=== PATIENT | female | born 2000 | race Caucasian/White ===

== ENCOUNTER → 2025-03-16 | Outpatient (CLI) | payer BC, SELFPAY ==
[2025-03-16 11:55] LABS: Absolute Lymphocyte Count 3.48 X10^3/uL (0.83-4.51); Absolute Neutrophil Count 5.2 X10^3/uL (2.0-7.7); Basophil# 0.04 X10^3/uL; Basophil% 0.4 % (0-1); Eosinophil# 0.55 X10^3/uL; Eosinophils% 5.6 % (0-5); Hematocrit 37.4 % (37-47); Hemoglobin 12.4 g/dL (12.0-15.0); Lymphocyte # 3.48 X10^3/ul (0.83-4.51); Lymphocyte % 35.6 % (19-41); Mean Corp Hgb Conc 33.2 g/dL (32-36); Mean Corpuscular Hgb 29.7 pg (27.0-32.0); Mean Corpuscular Volume 89.5 fL (81-99); Mean Platelet Vol. 9.2 fl (6.2-12.0); Monocyte# 0.45 X10^3/uL; Monocyte% 4.6 % (0-10); NRBC Flagged by Analyzer 0 % (0-5); Neutrophil # 5.23 X10^3/uL (2.7-7.7); Neutrophil % 53.6 % (47-70); Platelet Count 449 K/mm3 (150-450); RBC Distribution Width CV 13.4 % (11.6-14.6); RBC Distribution Width SD 43.7 fl (35.1-43.9); Red Blood Count 4.18 M/mm3 (4.2-5.4); White Blood Count 9.8 K/mm3 (4.4-11.0)
[2025-03-16 15:02] LABS: Hemoglobin A1c 5.7 % (<=5.6)
[2025-03-16 15:17] LABS: ALB/GLOB Ratio 1.1 RATIO (0.9-2.4); AST(SGOT) 13 U/L (<=31); Alanine Aminotransfer ALT/SGPT 10 U/L (<=34); Albumin, Serum 3.7 g/dL (3.5-5.0); Alkaline Phosphatase 117 U/L (35-104); Anion Gap 10 (5-15); BUN 11 mg/dL (4-19); BUN/Creat Ratio 18.9 RATIO (10-20); Calcium,Total 8.8 mg/dL (7.6-11.0); Carbon Dioxide 21.6 mmol/L (21.0-32.0); Chloride 106 mmol/L (98-108); Cholesterol 163 mg/dL (<=200); Creatinine, Serum 0.58 mg/dL (0.70-1.20); EST Glomerular Filtration Rate 129 (>60); Ferritin 40 ng/mL (22-378); Globulin 3.4 g/dL (2.2-4.2); Glucose 105 mg/dL (70-99); High Density Lipoprotein 52 mg/dL; Low Density Lipoprotein Calc. 89 mg/dL; Potassium 3.8 mmol/L (3.3-5.1); Protein, Total 7.1 g/dL (5.9-8.4); Sodium Level 138 mmol/L (133-145); Total Bilirubin 0.25 mg/dL (0.00-1.30); Triglycerides 110 mg/dL; Very Low Density Lipoprotein 22 mg/dL (5-40); Vitamin B12 432 pg/mL (180-914); cholesterol:hdl ratio screen 3.13
[2025-03-16 15:45] LABS: Iron 66 ug/dL (50-170); Iron Binding Capacity,Total 336 ug/dL (250-450); Iron Binding Capacity,Unsat 270 ug/dL (228-428)
[2025-03-18 05:07] LABS: Somatomedin C 85 ng/mL (101-347)
== END | disposition home or self-care (01) ==
LOC: LAB 11:17
PROVIDERS: PCP Nurse Practitioner Family; Referring Provider Nurse Practitioner Family; Visit Provider Nurse Practitioner Family
DX: K80.20 Calculus of gallbladder without cholecystitis without obstruction (principal); Z13.1 Encounter for screening for diabetes mellitus; Z13.220 Encounter for screening for lipoid disorders; R53.83 Other fatigue; E66.9 Obesity, unspecified
CPT/HCPCS: 36415; 80053; 80061; 82306; 82607; 82728; 83036; 83540; 83550; 84305; 84439; 84443; 85025

== ENCOUNTER 2025-04-30 11:07 | Day surgery (SDC) | payer BC, SELFPAY ==
[2025-04-30] VITALS (9 sets, daily range): BP systolic 143–158; BP diastolic 61–92; PULSE 77–110; RESP 14–18; TEMP 2.2–36.6; O2SAT 92–100; BMI 49.6
--- NOTE | 2025-04-30 11:44 | EKG12_ITS ---
Test Reason : PRE OP Blood Pressure : */* mmHG Vent. Rate : 68 BPM Atrial Rate : 68 BPM P-R Int : 136 ms QRS Dur : 78 ms QT Int : 368 ms P-R-T Axes : 48 28 5 degrees QTcB Int : 391 ms Normal sinus rhythm with sinus arrhythmia Normal ECG No previous ECGs available Confirmed by FROY OTTO, JOSE ([id number]), editor greeting card ANDREA SERRANO ([id number]) on 05/04/2025 6:49:17 AM Referred By: Choco Gonzáles Confirmed By: JOSE MCDUFFIE MD
[2025-04-30 11:45] LABS: Internal QC Validated? YES +Cl - CLEAR BKGD; Pregnancy, Urine Negative Negative
[2025-04-30] MEDS: Lactated Ringers 1,000 ML 15 ML IV (12:00)
--- NOTE | 2025-04-30 12:24 | PRE.ANES_ITS ---
ASA Classification* ASA Classification ASA Classification: 3 Assessment & Plan Anesthesia* Anesthesia Assessment Anesthesia Assessment: Discussed sedation and/or anesthesia options, risks, benefits, and alternatives with patient/parents/legal guardian/POA. Questions invited. The patient/parents/legal guardian/POA seems to understand and agrees to proceed with anesthesia plan. Reviewed the physical assessment, medical history, allergy history and patient home medications list prior to surgery/procedure/anesthetic and documented any changes. Performed airway and anesthesia risk assessments. Anesthesia Type Anesthesia Type: General History Source History Obtained from:: Patient and Chart Anesthesia Focused Assessment* Temperature: 97.9 F Pulse Rate: 77 Blood Pressure: 148/92 Respiratory Rate: 18 Pulse Ox: 100 Oxygen Delivery Method: Room Air Airway Assessment Mouth opens: >3 cm Mallampati Score: III Teeth Condition: Intact Neck Range of motion (ROM): Full ROM Labs Anesthesia Preop lab: CBC WBC 9.8 K/mm3 (4.4-11.0) 03/16/25 11:03/16/25 RBC 4.18 M/mm3 (4.2-5.4) L 03/16/25 11:03/16/25 Hgb 12.4 g/dL (12.0-15.0) 03/16/25 11:03/16/25 Hct 37.4 % (37-47) 03/16/25 11:03/16/25 Plt Count 449 K/mm3 (150-450) 03/16/25 11:32 03/16/25 CHEMISTRY Potassium 3.8 mmol/L (3.3-5.1) 03/16/25 11:03/16/25 Sodium 138 mmol/L (133-145) 03/16/25 11:32 03/16/25 BUN 11 mg/dL (4-19) 03/16/25 11:03/16/25 Creatinine 0.58 mg/dL (0.70-1.20) L 03/16/25 11:32 Glucose 105 mg/dL (70-99) H 03/16/25 11:32 03/16/25 TSH 3.610 uIU/mL (0.300-4.200) 03/16/25 11:32 03/04 01/26 COAG Urine Test Negative Negative 04/30/25 11:35 04/30/25 Pre-Assessment Diagnosis/Proposed Procedure Planned Operative Procedure(s): KATE CHOLEY WITH GRAMS Anesthesia History 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 When Was Last Pacemaker Check QUESTION #4 FULL TEXT: You/Your Family Experience fever (hyperthermia) with Anesthesia Last Oral Intake Last Oral intake: Last Oral Intake NPO since 06:00 04/30/25 11:47 Meds taken in AM with sips of No 04/30/25 11:47 water? 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 Female Yes 04/21/25 11:16 HX of Motion Sickness Yes 04/21/25 11:16 HX of N/V After Surgery No 04/21/25 11:16 Non-Smoker Yes 04/21/25 11:16 Duration of Surgery greater No 04/21/25 11:16 than 60 minutes Number of Risk Factors 3 04/21/25 11:16 PONV Score Moderate Risk 04/21/25 11:16 Height & Weight Height & Weight: Anesthesia: Height & Weight Height 5 ft 2 in 04/30/25 11:47 Weight: 123 kg 04/30/25 11:47 Body Mass Index (BMI) 49.6 04/30/25 11:47 Respiratory Assessment Respiratory Assessment - front load trash truck driver: Respiratory Tract Infection Hx - front load trash truck driver Hx Respiratory Tract Infection No 04/21/25 11:16 STOP Sleep Apnea STOP Sleep Apnea - front load trash truck driver: STOP Sleep Apnea - front load trash truck driver Hx Hypertension No 04/21/25 11:16 Hx Sleep Apnea No 04/21/25 11:16 CPAP BIPAP Do you snore loudly (louder No 04/21/25 11:16 than talking or can be heard Do you often feel tired/ No 04/21/25 11:16 fatigued/ sleepy during daytime? Has anyone observed you stop No 04/21/25 11:16 breathing during sleep? STOP Results Negative 04/21/25 11:16 QUESTION #5 FULL TEXT : Do you snore loudly (louder than talking or can be heard through closed doors)? 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 Specify any problems Hx of Preganancy in last 3 No 04/21/25 11:16 Months Nurse Filling Out Transfusion DSCHRIBER 04/21/25 11:16 & Questions: Date: 04/21/25 04/21/25 11:16 Time: 11:16 04/21/25 11:16 Patient unable to answer at this time (ie. confused, unrespo /Reproduction History /Reproductive History - front load trash truck driver: /Reproductive Hx- front load trash truck driver Hx Now No 04/21/25 11:16 Gestational Age (in weeks): EDC: Hx Hx Para Hx Section SAB No 04/21/25 11:16 Active Medications Active Medications: Current Medications Generic Name Dose Route Start Last Admin Trade Name Freq PRN Reason Stop Dose Admin Cefotetan Disodium 2 gm/ 100 mls @ 200 mls/hr 04/30/25 13:00 Sodium Chloride IV 04/30/25 13:29 INTRAOP ONE Lactated Ringer's 1,000 mls @ 15 mls/hr 04/30/25 11:30 04/30/25 12:00 IV 15 mls/hr .Q48H LUIS Administration PFSH Medical History Gastric reflux Non-smoker Gallstones Obesity Home Medications ?Medication ?Instructions ?Recorded ?Last Taken ?Type norgestimate 0.18 mg/0.215mg/0.25 1 tab PO QDAY 04/29/25 History mg-ethinyl estradiol 0.025 mg tablet ([id number]) Allergy/AdvReac Type Severity Reaction Status Date / Time No Known Allergies Allergy Verified 04/30/25 11:46 Family History Other Breast cancer Cancer Heart disease Surgical History History of wisdom tooth extraction Social History Smoking Status: Never smoker alcohol intake: never substance use type: does not use Review of Systems (Anesthesia) ROS Narrative System reviewed and no additional complaints, except as documented.
--- NOTE | 2025-04-30 12:43 | PCM.HP.BLA ---
History and Physical Date of Admission: 04/30/25 Intake Vital Signs 08/24/2411:16 04/14/2509:10 Height 5 ft 2 in 5 ft 2 in Weight: 272 lb 8 oz BMI 49.8 BP 111/72 Blood Pressure Location Rt brachial Position Sitting Respiration 18 Pulse 92 Pulse Source Monitor Temp 97.6 F L Temp Source Temporal Pulse Oximetry (%) 98 Oxygen Delivery Method room air Intake Visit Reasons: GALLSTONES Chief Complaint: gallstones Is patient in pain?: No Allergies No Known Allergies Allergy (Verified 04/14/25 09:11) Medications ?Medication ?Instructions ?Recorded ?Confirmed ?Type norgestimate 0.18 mg/0.215mg/0.25 1 tab PO QDAY 08/24/24 04/14/25 History mg-ethinyl estradiol 0.025 mg tablet ([id number]) [facility] Medical History Gallstones Obesity Surgical History History of wisdom tooth extraction Family History Other Breast cancer Cancer Heart disease Social History Smoking Status: Never smoker alcohol intake: never substance use type: does not use HPI HPI HPI: Patient is a 24-year-old female here for cholelithiasis. The patient had a recent gallbladder attack was brought to the emergency room and [facility]. At that visit she had a mildly elevated alkaline phosphatase and mildly elevated lipase. CT scan did not reveal any signs of acute cholecystitis or pancreatitis. She did have a history of ultrasound that showed cholelithiasis with no signs of acute cholecystitis. ROS General General: Yes fatigue; No weight change, appetite, colon cancer, breast cancer or weakness HEENT HEENT: No difficulty swallowing, eye injury, eye surgery, swollen glands or hoarseness Endo Endocrine: No thyroid disease, diabetes mellitus, thyroid cancer, Hair loss, heat intolerance or cold intolerance Skin Skin: No rash or changing moles Musc Musculoskeletal: No back problems, arthritis, rheumatoid arthritis, gout or joint pain Cardio Cardiovascular: No murmur, pacemaker, heart disease, atrial fibrillation, high blood pressure, heart attack, heart stent, palpitations, shortness of breath with exertion or chest pain Psych Psychiatric: No depression, anxiety or hearing voices Resp Respiratory: No shortness of breath, No sleep apnea, No cough, No COPD, No asthma, No emphysema and No wheezing Gastro Gastrointestinal: No abdominal pain, Yes nausea or vomiting, No diarrhea, No constipation, No blood in stool, No acid reflux, No hemorrhoids, No ulcers, Yes gallbladder problem and No black,tarry stools Deo Hematologic: No blood thinners, No blood disorders, No bleeding, No anemia and No blood clots Neuro Neurologic: No numbness, No tingling and No weakness Exam Const General: cooperative Orientation: alert and oriented x3 HENMT Head: normal to inspection Neck Neck: normal visual inspection and full ROM Chest Chest palpation & inspection: normal inspection of the chest Resp Effort & Inspection: normal respiratory effort Auscultation: clear to auscultation bilaterally Cardio Rate: regular rate Rhythm: regular rhythm GI Inspection: non-distended Palpation: soft and nontender Skin General: no rashes or lesions noted Neuro General: patient alert and patient oriented x3 Extrem General: full ROM Psych Appearance: grossly normal Mental Status: mental status grossly normal Assessment and Plan Assessment and Plan (1) Gallstones: Status: Acute Plan: The patient has been having intermittent gallbladder attacks. She had an ultrasound that showed cholelithiasis. I do not have the images but I do have the interpretations. I plan on laparoscopic cholecystectomy with cholangiograms. I discussed the procedure in detail with the patient. I discussed the risks, benefits, and alternatives of the procedure. I discussed the risks including but not limited to bleeding, infection, injury to surrounding organs such as the liver, bile duct, bowels. I did discuss the possibility of having to convert to an open procedure as well as the possibility that if any injuries occurred this may necessitate further surgery at a tertiary care center. Choco Gonzáles MD Pager: [facility] [address] [place] [address], [address] [place] [address] Office: I have examined the patient and the H&P has been reviewed. There are no clinical changes since date of exam.
--- NOTE | 2025-04-30 13:00 | GALL_PTH ---
PATIENT: CARMEN HORNER LOC: [facility] – [place] U#:[id number] AGE/SX: 24/F ROOM: RE04/30/[address]: Dr. Choco Gonzáles MD : 2000 BED: DIS: 04/30/2025 SPEC #: [id number] RECD: 04/30/25 15:38 STATUS: GREGORIA CROWDER #: [id number] JOJO: 04/30/25 13:[address]: Choco Gonzáles DEPT: SURGICAL PATHOLOGY RECD BY: Watson Aivles ENTERED: 05/03/25 09:29 SP TYPE: GLENNA ZAZUETA DR: Awa Valdivia, RO Tissues: A - Gallbladder, NOS Procedures: Surgery Specimen Level III HEADER OPERATION: Laparoscopic cholecystectomy with IOC PRE-OP DIAGNOSIS: Gallstones TISSUE SUBMITTED: A- Gallbladder MICROSCOPIC DIAGNOSIS A. Gallbladder, gallstones, cholecystectomy: - Cholelithiasis, cholesterolosis. - Benign pericystic lymph node x1. MICROSCOPIC DESCRIPTION Slides are reviewed. GROSS DESCRIPTION A. Received in formalin labeled with the patient's name and date of . Designated as gallbladder is a 8.7 x 3.5 x 3.2 cm green, distended and intact gallbladder with attached patent cystic duct (inked black, shaved). A lymph node is present. Opening reveals dark green, tenacious bile and multiple irregular, yellow choleliths, ranging <0.1 cm to 1.3 cm. The mucosa is dark green and granular with a maximum wall thickness of 0.1 cm. Cholesterolosis is present. Machinery Cleaner sections are submitted in 1 cassette. PR 05/03/2025 CPT:08421
--- NOTE | 2025-04-30 13:04 | RAD_ITS ---
PROCEDURE: CHOLANGIOGRAM/ O R,INITIAL N/A REASON FOR EXAM: LAP JAVI W/ IOC TECHNIQUE: Intraoperative cholangiogram, performed following cholecystectomy. Numerous fluoroscopic images were also obtained. COMPARISON: None. RAD/Cholangiogram/ O R,Initial IMPRESSION: Intraoperative cholangiogram, performed following cholecystectomy. Numerous flu oroscopic images were also obtained. Reading Location: [place] [address]
[2025-04-30] MEDS: Cefotetan 2 GM in 0.9% Normal Saline (100mL MB+) 100 ML IV (13:15)
[2025-04-30] MEDS: Bupiv/Epi 0.25% 30 ML Vial (13:42)
[2025-04-30] MEDS: Sugammadex Sodium 200 MG/2 ML VIAL IV (14:04)
--- NOTE | 2025-04-30 14:11 | PCM.OPRPT ---
Operative Report (Standard) Operative Information Date of Procedure: 04/30/25 Pre-Operative Diagnosis: Cholelithiasis Post-Operative Diagnosis: Cholelithiasis Surgery/Procedure Performed: Laparoscopic cholecystectomy with cholangiograms earth science laboratory technician: Yes Dog Beautician: Ry Garsia Tasks completed by engineer second assistant: Opening, Closing and Retracting Type of Anesthesia: General/Regional RN Documented Start/Stop Times: Operation Date: 04/30/25 13:00 Case Time Into Pre-Op 04/30/25 11:18 Anesthesia Start 04/30/25 13:04 Into Room 04/30/25 13:04 Out of Pre-Op 04/30/25 13:04 Procedure Start 04/30/25 13:24 Procedure Start Time: 13:24 Procedure Stop Time: 14:15 Select all DRAINS/GRAFTS/IMPLANTS that apply: None Estimated Blood Loss: 10 Specimen collected: Yes Description of specimen(s) removed: Gallbladder Description of surgery: After obtaining informed consent patient was brought back to the operating room. General anesthesia was induced. The abdomen was prepped and draped in usual sterile fashion. A small midline incision was made superior to the umbilicus and deepened to the level of fascia. The fascia was elevated and incised. Next the peritoneum was elevated and incised in the same fashion. Finger sweep was performed and the Greene trocar was placed into the abdomen. The balloon was inflated. The abdomen was inflated to 15 mmHg. Next a camera was introduced into the abdomen and the abdomen was inspected. Next under direct visualization three 5-mm ports were placed one subxiphoid and 2 subcostal. Next the gallbladder was elevated and retracted toward the right shoulder. The peritoneum was stripped from the gallbladder. The infundibulum was located and retracted laterally. Next the triangle of Calot was dissected and the cystic duct and cystic artery were identified. Cholangiograms were performed. The Balbuena clamp was used to clamp across the infundibulum and the catheter needle was inserted into the gallbladder. Under fluoroscopy contrast was instilled into the gallbladder and the common duct, cystic duct as well as proximal hepatic ducts were identified. There was good filling of the duodenum. There were no filling defects noted in the common bile duct. The clamp was removed as well as the needle and the infundibulum was grasped once more. Three hemolock clips were placed across the cystic duct. The cystic duct was then divided leaving 2 clips on the stump. The cystic artery was clipped and divided in the same fashion. The hook cautery was then used to take the gallbladder off of the gallbladder bed. Hemostasis was obtained. Gallbladder fossa was irrigated and no active bleeding or bile leakage was noted. Next the camera was introduced in the subxiphoid port. An Endopouch bag was placed through the umbilical port and the gallbladder was placed into it. The gallbladder was then removed through the umbilical incision. The camera was then reinserted through the umbilical port. The gallbladder fossa was inspected once more and noted to be hemostatic with no leaking bile. The abdomen was suctioned dry. The 5 mm ports were removed under direct visualization. The umbilical port was then removed and the air was removed from the abdomen. Next using an 0 Vicryl suture the umbilical fascia was closed in a [id number] fashion. The umbilical port site was irrigated local anesthetic was administered to all the incisions. All the incisions were closed with interrupted subcuticular 4-0 Monocryl sutures followed by Steri-Strips and dressings. The patient was awoken and taken to PACU in stable condition. Surgical Findings: Normal intraoperative cholangiogram's Complications Complications: No Admit VTE Documentation VTE Mechan Device Prophylaxis: SCD's
--- NOTE | 2025-04-30 14:12 | EX.PCM.DISCH ---
Discharge Instructions Procedure Gallbladder Diet Discharge Diet: Light diet - advance as tolerated Activity Discharge Activity: May Not Drive (for 2-3 days or while taking narcotic pain medications.) and - (Do not drive, work heavy equipment or sign legal documents for 24 hours.) May shower in (days): 1 Lifting Restrictions: 20 lbs for 2 weeks Additional Activity Instructions:: Pain medication may cause nausea. You should typically eat light foods as you take your pain medications. Pain medication may also cause constipation. If this is a problem for you, please discuss with your doctor. Alternate ibuprofen and Tylenol for pain control, oxycodone for breakthrough pain Dressing / Incision Call your doctor if your incision/area has: Continuous Slow Oozing, Sudden Increased Bleeding, Increased Pain/ Swelling, Increased Redness and Foul Smelling Discharge Call your doctor if you observe: Fever of 101 or Higher Suture Line Care: Avoid Pulling/Pushing and Avoid Pinching/Bending Remove Dressing in: 2 days Additional Dressing/Incision Instructions:: Leave operative bandaids on for 2 days. When you remove dressing, leave Steri-Strips on until your follow-up appointment, or until the Steri-Strips fall off on their own. Follow Up Care Please Follow Up With: Choco Gonzáles MD When: Please call to schedule 2 week follow up appointment. [phone] Test Results: Test results from this visit will be discussed in further detail at your follow-up appointment, if applicable. Discharge Plan Admission Attending Provider: Choco Gonzáles Primary Care Provider: Awa Valdivia Instructions Print Language: Spanish Discharge Orders/Prescriptions Prescriptions: New oxycodone 5 mg Tablet 5 - 10 mg PO Q4H PRN PRN (Reason: Pain Score 4-10) 5 Days Qty: 20 0RF No Action norgestimate-ethinyl estradiol [Sqq-Hc-Jiokqk] 0.18/0.215/0.25 mg-25 mcg tablet 1 tab PO QDAY Referrals / Follow Up: Awa Valdivia NP-C [Primary Care Provider] - Disposition Disposition (needs filled in before D/C Order can be placed): Home, Self Care
--- NOTE | 2025-04-30 14:23 | PCM.POST.ANE ---
Anesthesia: Postop Eval I Current Vital Signs Temperature: 36 F Pulse Rate: 99 Blood Pressure: 150/61 Respiratory Rate: 14 Pulse Ox: 98 Oxygen Delivery Method: Room Air Assessment Airway patent: Yes Spontaneous unlabored respirations: Yes nausea: Yes Vomiting: No Anesthesia Complication: No Fluid Hydration Crystalloid volume administer (ml): 1,000 Total IV fluid infused: 1,000 Progress Note Anesthesia document: Postop Eval 1 completed: Yes
--- NOTE | 2025-05-03 10:02 | POSTOPAN2_ITS ---
Anesthesia Postop Eval I Sum Postop Eval Completion status Anesthesia document: Postop Eval 1 completed: Yes Anesthesia Postop Eval I Summary Anesthesia Postop Eval I Summary: Anesthesia Postop Eval I: Assessment Summary Airway patent Yes 04/30/25 14:25 [email or web address] Spontaneous unlabored Yes 04/30/25 14:25 DOOR [email or web address] respirations Mental status nausea Yes 04/30/25 14:25 DOOR [email or web address] Vomiting No 04/30/25 14:25 [email or web address] [email or web address] Anesthesia Postop Eval I: Fluid Summary Crystalloid volume administer (ml) Colloids volume administered ( ml) Blood Product volume administered (ml) Total IV fluid infused Anesthesia Postop Eval I: Summary Notes Anesthesia Complication No 04/30/25 14:25 [email or web address] [email or web address] Anesthesia Complication Comment: Post-operative progress note Anesthesia: Postop Eval II Evaluation Mental status: Awake and Calm Pain Level: 1 nausea: No Vomiting: No Complications Anesthesia Complication: No
--- NOTE | 2025-05-03 10:02 | PCM.POSTANE2 ---
Anesthesia Postop Eval I Sum Postop Eval Completion status Anesthesia document: Postop Eval 1 completed: Yes Anesthesia Postop Eval I Summary Anesthesia Postop Eval I Summary: Anesthesia Postop Eval I: Assessment Summary Airway patent Yes 04/30/25 14:25 [email or web address] Spontaneous unlabored Yes 04/30/25 14:25 BILLING [email or web address] respirations Mental status nausea Yes 04/30/25 14:25 BILLING [email or web address] Vomiting No 04/30/25 14:25 [email or web address] Anesthesia Postop Eval I: Fluid Summary Crystalloid volume administer (ml) Colloids volume administered ( ml) Blood Product volume administered (ml) Total IV fluid infused Anesthesia Postop Eval I: Summary Notes Anesthesia Complication No 04/30/25 14:25 BILLING [email or web address] Anesthesia Complication Comment: Post-operative progress note Anesthesia: Postop Eval II Evaluation Mental status: Awake and Calm Pain Level: 1 nausea: No Vomiting: No Complications Anesthesia Complication: No
== END 2025-04-30 16:20 | disposition home or self-care (01) ==
LOC: SDC 11:11 → AC 11:12
PROVIDERS: Anesthesiology; PCP Nurse Practitioner Family; Referring Provider Surgery; Visit Provider Surgery
PROC: (CPT 47610; principal; 2025-04-30 12:40)
DX: K80.20 Calculus of gallbladder without cholecystitis without obstruction (principal); R53.83 Other fatigue
CPT/HCPCS: 47563; 00790; 74300; 76000; 81025; 88304; 93005; J2405